=== PATIENT | female | born 2000 | race American Indian/Alaskan Native ===

== ENCOUNTER 2021-11-21 10:10 | Emergency (ER) | payer SELFPAY ==
[2021-11-21 10:21] VITALS: BP 146/76
--- NOTE | 2021-11-21 10:25 | Emergency Department Report ---
ED Asthma HPI - General Chief Complaint: Adult Asthma Stated Complaint: ASTHMA Time Seen by Provider: 11/21/21 10:21 Source: patient, EMS Mode of arrival: Ambulatory Limitations: No Limitations - History of Present Illness Initial Comments: Patient presents by ambulance for an asthma exacerbation. She round of albuterol. She started having trouble breathing yesterday. EMS was called today because she was wheezing and short of breath and had no albuterol. EMS administered an albuterol neb. Patient states that she feels better now. She has not had any kind of cough or congestion. She has not been on steroids recently. She has been admitted before. Last hospitalization was 3 years ago. She has never required intubation. Patient does not know what triggered this particular attack. She has not been around any new pets. She has not eaten anything that she would be allergic to. She has had no known allergen exposure. - Related Data Previous Rx's Medication Instructions Recorded Last Taken Type Albuterol Sulfate [Proventil Hfa] 2 puff IH 4XD #1 inh 11/21/21 Unknown Rx predniSONE [Deltasone] 50 mg PO QDAY #5 tab 11/21/21 Unknown Rx Allergies Allergy/AdvReac Type Severity Reaction Status Date / Time ibuprofen [From Motrin] Allergy Hives Verified 11/21/21 10:16 ED Review of Systems ROS: Stated complaint: ASTHMA Other details as noted in HPI Comment: All other systems reviewed and negative Constitutional: denies: fever Eyes: denies: vision change ENT: denies: throat pain Respiratory: see HPI. denies: cough Cardiovascular: denies: chest pain Endocrine: denies: unexplained weight loss Gastrointestinal: denies: abdominal pain Genitourinary: denies: dysuria Musculoskeletal: denies: back pain Skin: denies: rash Neurological: denies: headache Hematological/Lymphatic: denies: easy bruising ED Past Medical Hx - Past Medical History Hx Asthma: Yes - Family History Family history: asthma - Social History Smoking Status: Never Smoker Substance Use Type: None - Medications Home Medications: Home Medications Medication Instructions Recorded Confirmed Last Taken Type Albuterol Sulfate [Proventil Hfa] 2 puff IH 4XD #1 inh 11/21/21 Unknown Rx predniSONE [Deltasone] 50 mg PO QDAY #5 tab 11/21/21 Unknown Rx ED Physical Exam - General Limitations: No Limitations, Other (Pulse ox noted and normal) General appearance: alert, in no apparent distress - Head Head exam: Present: atraumatic, normocephalic - Eye Eye exam: Present: normal appearance, PERRL, EOMI. Absent: scleral icterus - ENT ENT exam: Present: normal orophraynx, normal external ear exam - Neck Neck exam: Present: normal inspection. Absent: meningismus - Respiratory Respiratory exam: Present: normal lung sounds bilaterally. Absent: respiratory distress - Cardiovascular Cardiovascular Exam: Present: regular rate, normal rhythm - GI/Abdominal GI/Abdominal exam: Present: soft - Extremities Exam Extremities exam: Present: normal capillary refill. Absent: pedal edema - Back Exam Back exam: Absent: CVA tenderness (R), CVA tenderness (L) - Neurological Exam Neurological exam: Present: alert, oriented X3, CN II-XII intact, normal gait. Absent: motor sensory deficit - Psychiatric Psychiatric exam: Present: normal affect, normal mood - Skin Skin exam: Present: warm, dry ED Course Vital Signs 11/21/21 10:17 Pulse Rate 98 H Respiratory 18 Rate Blood Pressure 146/76 O2 Sat by Pulse 95 Oximetry - Reevaluation(s) Reevaluation #1: 11/21/21 10:23 EMS was met upon arrival. Old records noted. Patient was discharged. ED Medical Decision Making - Medical Decision Making Patient presented by ambulance secondary to an asthma exacerbation. She was not wheezing. She did resolve with treatment provided by EMS. She does not require admission at this time. She certainly has no adventitious breath sounds with suggest pneumonia or pneumothorax. She is not hypoxic. She was treated symptomatically and referred for outpatient follow-up. Critical Care Time: No Critical care attestation.: If time is entered above; I have spent that time in minutes in the direct care of this critically ill patient, excluding procedure time. ED Disposition Clinical Impression: Medication refill Asthma exacerbation Qualifiers: Asthma severity: mild Asthma persistence: intermittent Qualified Code(s): J45.21 - Mild intermittent asthma with (acute) exacerbation Disposition: 01 HOME / SELF CARE / HOMELESS Is pt being admited?: No Condition: Stable Instructions: Preventing Asthma Attacks From Outdoor Allergens, Teen, Preventing Asthma Attacks From Indoor Allergens, Teen, Asthma, Adult, [id number] Additional Instructions: Drink plenty of water. Return for problems. Continue home medication. Follow- up with the referral physician for recheck. Prescriptions: predniSONE [Deltasone] 50 mg PO QDAY #5 tab Albuterol Sulfate [Proventil Hfa] 2 puff IH 4XD #1 inh Referrals: LEORA ALLISON MD [Staff Physician] - 3-5 Days
== END 2021-11-21 10:36 | disposition home or self-care (01) ==
LOC: ED 10:10
DX: J45.901 Unspecified asthma with (acute) exacerbation (principal); Z76.0 Encounter for issue of repeat prescription; Z88.6 Allergy status to analgesic agent; Z79.899 Other long term (current) drug therapy
CPT/HCPCS: 99283

== ENCOUNTER 2021-11-28 08:42 | Emergency (ER) | payer SELFPAY ==
[2021-11-28] MEDS ORDERED: predniSONE 20 MG TAB PO ONE (08:49)
[2021-11-28] MEDS ORDERED: SODIUM CHLORIDE 0.9% 1000 ML 1,000 ML IV ONE (08:49)
--- NOTE | 2021-11-28 08:52 | Emergency Department Report ---
ED Asthma HPI - General Chief Complaint: Adult Asthma Stated Complaint: SHORTNESS OF BREATH Time Seen by Provider: 11/28/21 08:48 Source: EMS Mode of arrival: Stretcher Limitations: No Limitations - History of Present Illness Initial Comments: Patient presents by ambulance secondary to difficulty breathing. She has long history of asthma. She started having an asthma attack earlier this morning. EMS went out this morning. She was wheezing. They gave her a breathing treatment and she did well. She had responded and did not want to be transporte d. Unfortunately, the difficulty breathing started up again. She did use her inhaler again. This did not help. EMS was called and the patient was transported here. They did administer albuterol in route. IV was not established. Patient states that she is feeling better than she was. She has been admitted previously. The last time she required hospitalization due to asthma was 6 years ago. She is never been intubated. Patient states that she has not been sick lately, she just dates that she has been having trouble breathing. She has not been on prednisone lately. - Related Data Previous Rx's Medication Instructions Recorded Last Taken Type Albuterol Sulfate [Proventil Hfa] 2 puff IH 4XD #1 inh 11/21/21 Unknown Rx predniSONE [Deltasone] 50 mg PO QDAY #5 tab 11/28/21 Unknown Rx Allergies Allergy/AdvReac Type Severity Reaction Status Date / Time ibuprofen [From Motrin] Allergy Hives Verified 11/28/21 08:50 ED Review of Systems ROS: Stated complaint: SHORTNESS OF BREATH Other details as noted in HPI Comment: All other systems reviewed and negative Constitutional: denies: fever Eyes: denies: vision change ENT: denies: throat pain Respiratory: see HPI. denies: cough Cardiovascular: denies: chest pain Endocrine: denies: unexplained weight loss Gastrointestinal: denies: abdominal pain Genitourinary: denies: dysuria Musculoskeletal: denies: back pain Skin: denies: rash Neurological: denies: headache Hematological/Lymphatic: denies: easy bruising ED Past Medical Hx - Past Medical History Hx Asthma: Yes - Family History Family history: asthma - Social History Smoking Status: Never Smoker Substance Use Type: None - Medications Home Medications: Home Medications Medication Instructions Recorded Confirmed Last Taken Type Albuterol Sulfate [Proventil Hfa] 2 puff IH 4XD #1 inh 11/21/21 Unknown Rx predniSONE [Deltasone] 50 mg PO QDAY #5 tab 11/28/21 Unknown Rx ED Physical Exam - General Limitations: No Limitations, Other (Pulse ox noted and normal. She is not hypoxic.) General appearance: alert, in distress (Mild), other (Nontoxic) - Head Head exam: Present: atraumatic, normocephalic - Eye Eye exam: Present: normal appearance, PERRL, EOMI. Absent: scleral icterus - ENT ENT exam: Present: normal orophraynx, normal external ear exam - Neck Neck exam: Present: normal inspection. Absent: tenderness, meningismus - Respiratory Respiratory exam: Present: respiratory distress, wheezes (Mild pallor), prolonged expiratory - Cardiovascular Cardiovascular Exam: Present: normal rhythm, tachycardia - GI/Abdominal GI/Abdominal exam: Present: soft. Absent: tenderness - Extremities Exam Extremities exam: Present: normal capillary refill. Absent: pedal edema, calf tenderness - Back Exam Back exam: Absent: CVA tenderness (R), CVA tenderness (L) - Neurological Exam Neurological exam: Present: alert, oriented X3, CN II-XII intact. Absent: motor sensory deficit - Psychiatric Psychiatric exam: Present: normal affect, normal mood - Skin Skin exam: Present: warm, dry ED Course Vital Signs 11/28/21 11/28/21 11/28/21 08:49 08:57 09:01 Temperature 98.4 F Pulse Rate 129 H 133 H 148 H Respiratory 22 22 29 H Rate Blood Pressure Blood Pressure 132/80 [Left] O2 Sat by Pulse 100 97 96 Oximetry 11/28/21 11/28/21 11/28/21 09:15 09:20 09:22 Temperature 97.4 F L Pulse Rate 131 H 134 H Respiratory 32 H 22 22 Rate Blood Pressure 136/67 Blood Pressure [Left] O2 Sat by Pulse 94 96 96 Oximetry 11/28/21 11/28/21 11/28/21 09:31 09:45 09:58 Temperature Pulse Rate 134 H 143 H 114 H Respiratory 21 22 Rate Blood Pressure 128/74 128/74 Blood Pressure [Left] O2 Sat by Pulse 97 97 Oximetry 11/28/21 11/28/21 10:01 10:15 Temperature Pulse Rate 123 H Respiratory 22 20 Rate Blood Pressure 118/71 118/71 Blood Pressure [Left] O2 Sat by Pulse 95 93 Oximetry - Reevaluation(s) Reevaluation #1: 11/28/21 08:52 EMS was met upon arrival. Albuterol plus Atrovent were ordered. Old records reviewed. Reevaluation #2: 11/28/21 09:29 EKG was noted. Reevaluation #3: 11/28/21 10:46 Patient is no longer wheezing. She is maintaining her saturations. Heart rate has improved to the 110 range. I do believe discharge is appropriate. She was treated symptomatically and referred out. ED Medical Decision Making - Lab Data Rhythm strip: Sinus tachycardia without ectopy. Monitor observe 10 seconds. - EKG Data -: EKG Interpreted by Me - EKG Data 11/28/21 09:29 0855-EKG shows sinus tachycardia 131. QRS is normal at 77. QT corrected is normal at 448. Patient has no ST elevation to suggest STEMI. There is no ST depression suggestive of ischemia. Patient has T wave flattening in the inferior leads as well as V5 and V6 and 1 and aVL. Other than tachycardia. There does not appear to be obvious change from EKG dated earlier this month. - Medical Decision Making Patient presents secondary to an asthma exacerbation. She has been treated here with nebulizers and steroids. She does not require ongoing oxygen therapy. She is not hypoxic. She is in no distress. She does not require admission at this time. There is no clinical evidence of pneumonia. She does not have rails, fever, or productive cough. She did not have chest pain or hypoxia at this point that would have suggested pulmonary embolism and has no risk factor for PE. Certainly, there is no symptomatology suggestive of coronavirus. Critical Care Time: No Critical care attestation.: If time is entered above; I have spent that time in minutes in the direct care of this critically ill patient, excluding procedure time. ED Disposition Clinical Impression: Asthma exacerbation Qualifiers: Asthma severity: moderate Asthma persistence: persistent Qualified Code(s): J45.41 - Moderate persistent asthma with (acute) exacerbation Disposition: 01 HOME / SELF CARE / HOMELESS Is pt being admited?: No Condition: Stable Instructions: Asthma, Adult, Preventing Asthma Attacks From Indoor Allergens, Teen, Preventing Asthma Attacks From Outdoor Allergens, Teen Additional Instructions: Drink plenty of water. Return for problems. Follow-up with the referral doctor for recheck and further management. Use your inhaler at home. Prescriptions: predniSONE [Deltasone] 50 mg PO QDAY #5 tab
[2021-11-28] MEDS: IPRATROPIUM 0.02% NEBU 2.5 ML IH ONE ×2 (09:20→12:00)
[2021-11-28] MEDS: ALBUTEROL 2.5 MG/3 ML NEBU IH ONE ×2 (09:20→12:00)
[2021-11-28 11:16] VITALS: BP 128/65
--- NOTE | 2021-11-29 10:48 | Electrocardiograph Report ---
[facility] Test Date: 2021-11-28 Test Time: 08:55:41 Pat Name: SUSAN SALES Department: Room: Gender: F Vice President [employer]: MILTON : 2000 Requested By: ROYA TATE Order Number: [id number] Reading MD: Chad Rosales Measurements Intervals [place] Rate: 131 P: 80 TN: 140 QRS: 62 QRSD: 77 T: 28 QT: 304 QTc: 448 Interpretive Statements Sinus tachycardia No previous ECG available for comparison Electronically Signed On 11-29-2021 10:47:38 EDT by Chad Rosales
== END 2021-11-28 11:05 | disposition home or self-care (01) ==
LOC: ED 08:42
DX: J45.901 Unspecified asthma with (acute) exacerbation (principal); Z88.6 Allergy status to analgesic agent; Z79.899 Other long term (current) drug therapy
CPT/HCPCS: 93005; 94640; 94644; 99283